=== PATIENT | female | born 1950 | race Caucasian/White ===

== ENCOUNTER 2020-03-14 15:25 | Outpatient (CLI) | payer MEDICARE, OTHER, SELFPAY ==
--- NOTE | 2020-03-14 15:30 | MM_ITS ---
WS: [id number] BILATERAL DIGITAL SCREENING MAMMOGRAPHY WITH CAD CLINICAL INFORMATION: SCREENING HISTORY: Screening mammogram. No current complaints. COMPARISON: December 27, 2018 TECHNIQUE: Bilateral CC and MLO views. FINDINGS: The breasts are composed of heterogeneous fibroglandular density tissue, which can limit the detectio n of small underlying mass lesions. No suspicious mass, asymmetry, calcifications, or architectural d istortion. No evidence of malignancy. Punctate calcifications. A few intramammary lymph nodes. MM/[place] [id number] IMPRESSION: BI-RADS: 2-Benign FOLLOW UP: 1 Year Follow-up Recommend return to annual screening mammography.
== END 2020-03-14 15:26 | disposition home or self-care (01) ==
LOC: RADSHAW 15:29
PROVIDERS: Visit Provider Obstetrics & Gynecology
DX: Z12.31 Encounter for screening mammogram for malignant neoplasm of breast (principal)
CPT/HCPCS: 77067

== ENCOUNTER 2022-11-07 13:58 | Outpatient (CLI) | payer MEDICARE, SELFPAY ==
--- NOTE | 2022-11-07 14:15 | MM_ITS ---
WS: [id number] BILATERAL 3D TOMOSYNTHESIS DIGITAL SCREENING MAMMOGRAPHY WITH CAD CLINICAL INFORMATION: SCREENING HISTORY: Screening mammogram. No current complaints. COMPARISON: 2020 TECHNIQUE: Bilateral CC and MLO views. FINDINGS: The breasts are composed of heterogeneous fibroglandular density tissue, which can limit the detectio n of small underlying mass lesions. No suspicious mass, asymmetry, calcifications, or architectural d istortion. No evidence of malignancy. Incidental punctate calcifications. MM/[place] [id number] IMPRESSION: BI-RADS: 2-Benign FOLLOW UP: 1 Year Follow-up Recommend return to annual screening mammography.
== END 2022-11-07 13:59 | disposition home or self-care (01) ==
PROVIDERS: PCP Family Medicine; Visit Provider Family Medicine
DX: Z12.31 Encounter for screening mammogram for malignant neoplasm of breast (principal)
CPT/HCPCS: 77063; 77067

== ENCOUNTER 2022-12-05 14:25 | Outpatient (CLI) | payer MEDICARE, SELFPAY ==
--- NOTE | 2022-12-05 14:27 | CTR_ITS ---
PROCEDURE INFORMATION: Exam: CT Chest With Contrast; Diagnostic Exam date and time: 12/05/2022 2:46 PM Age: 71 years old Clinical indication: Condition or disease; Other: Immune disorder; Other: Dermatopolymyosis; Additional info: Dermatopolymyosis, unspecified, organ involvment, unspecifi TECHNIQUE: Imaging protocol: Diagnostic computed tomography of the chest with contrast. Radiation optimization: All CT scans at this facility use at least one of these dose optimization techniques: automated exposure control; mA and/or kV adjustment per patient size (includes targeted exams where dose is matched to clinical indication); or iterative reconstruction. Contrast material: OMNI 350; Contrast volume: 100 ml; Contrast route: INTRAVENOUS (IV); REPORTING DATA: Count of CT and Cardiac NM exams in prior 12 months: This patient has received 0 known CTs and 0 known cardiac nuclear medicine studies in the 12 months prior to the current study. COMPARISON: CR XR chest 2V* [id number] 11/03/2022 3:24 PM RADIATION DOSE METRICS: Total DLP (mGy-cm): 00.01 FINDINGS: Lungs: Unremarkable. No consolidation. No masses. Pleural spaces: Unremarkable. No pneumothorax. No pleural effusion. Heart: Unremarkable. No cardiomegaly. No pericardial effusion. Lymph nodes: Unremarkable. No enlarged lymph nodes. Vasculature: Unremarkable. No aortic aneurysm. Bones/joints: Degenerative changes of the spine seen. Left proximal humerus ORIF hardware and old healed fracture deformity noted. Soft tissues: Unremarkable. PROCEDURE INFORMATION: Exam: CT Abdomen And Pelvis With Contrast Exam date and time: 12/05/2022 2:46 PM Age: 71 years old Clinical indication: Condition or disease; Other: Immune disorder; Other: Dermatopolymyosis; Additional info: Dermatopolymyosis, unspecified, organ involvment, unspecifi TECHNIQUE: Imaging protocol: Computed tomography of the abdomen and pelvis with contrast. Radiation optimization: All CT scans at this facility use at least one of these dose optimization techniques: automated exposure control; mA and/or kV adjustment per patient size (includes targeted exams where dose is matched to clinical indication); or iterative reconstruction. Contrast material: OMNI 350; Contrast volume: 100 ml; Contrast route: INTRAVENOUS (IV); REPORTING DATA: Count of CT and Cardiac NM exams in prior 12 months: This patient has received 0 known CTs and 0 known cardiac nuclear medicine studies in the 12 months prior to the current study. COMPARISON: US pelv w/transvag [id number] 11/11/2022 11:22 AM RADIATION DOSE METRICS: Total DLP (mGy-cm): 555.84 FINDINGS: Liver: There are multiple low-attenuation lesions scattered throughout the liver, the largest measuring 1.3 cm in the right hepatic lobe. No cirrhotic features identified. Gallbladder and bile ducts: Normal. No calcified stones. No ductal dilation. Pancreas: Normal. No ductal dilation. Spleen: There is a wedge-shaped area of decreased attenuation in the posterior spleen, consistent with infarct. 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 Adrenal glands: Normal. No mass. Kidneys and ureters: Normal. No hydronephrosis. Stomach and bowel: There is diverticulosis without evidence of diverticulitis. Appendix: No evidence of appendicitis. Intraperitoneal space: Unremarkable. No free air. No significant fluid collection. Vasculature: Unremarkable. No abdominal aortic aneurysm. Lymph nodes: Unremarkable. No enlarged lymph nodes. Urinary bladder: Unremarkable as visualized. Reproductive: Unremarkable as visualized. Bones/joints: Degenerative changes of the spine with grade 1 anterolisthesis of L3 and L4 seen. Soft tissues: Unremarkable. CT/CT chest abdpel w/*[id number] IMPRESSION: No acute pathology in the chest. IMPRESSION: Nonspecific hepatic hypodense lesions. Further characterization with contrast enhanced abdomen MRI should be considered in the adequate clinical setting.
[2022-12-05 14:48] LABS: Blood Urea Nitrogen 14 mg/dL (8-23)
[2022-12-05] MEDS: iohexol 350 mg/mL 500 mL Btl (per mL) IV (14:49)
== END 2022-12-05 14:26 | disposition home or self-care (01) ==
PROVIDERS: PCP Family Medicine; Visit Provider Internal Medicine Rheumatology
DX: M33.90 Dermatopolymyositis, unspecified, organ involvement unspecified (principal); Z12.9 Encounter for screening for malignant neoplasm, site unspecified; K76.9 Liver disease, unspecified
CPT/HCPCS: 71260; 74177; 82565; 84520; Q9967

== ENCOUNTER 2022-12-16 13:38 | Outpatient (CLI) | payer MEDICARE, OTHER, SELFPAY ==
[2022-12-16] MEDS: albuterol 2.5 mg/3 mL Neb INHALATION (14:05)
[2022-12-16 14:06] VITALS: PULSE 87; RESP 18; O2SAT 98
[2022-12-16 14:11] VITALS: PULSE 88
--- NOTE | 2022-12-16 14:29 | XR_ITS ---
WS: [id number] DEXA (DUAL ENERGY X-RAY ABSORPTIOMETRY) Bone mineral density was performed using a Avtal24 machine. HISTORY: RESIDENTIAL, CURRENT, USE OF SYSTEMIC STEROIDS COMPARISON: None available. Lumbar spine BMD (L1-L4): 1.244 g/cm2 T score: 0.5 Z score: 2.5 Total hip BMD: Left: 0.904 g/cm2. T score: -0.8 Z score: 0.9 Right: 0.964 g/cm2. T score: -0.3 Z score: 1.4 10 year probability of a major osteoporotic fracture is 36.3%. XR/XR DEXA axial skeleton* [id number] IMPRESSION: NORMAL BONE MINERAL DENSITY based upon the WHO classification for females.
== END 2022-12-16 13:39 | disposition home or self-care (01) ==
PROVIDERS: PCP Family Medicine; Visit Provider Internal Medicine Rheumatology
DX: M81.0 Age-related osteoporosis without current pathological fracture (principal); R06.02 Shortness of breath; M33.90 Dermatopolymyositis, unspecified, organ involvement unspecified; Z79.52 Long term (current) use of systemic steroids
CPT/HCPCS: 77080; 94060; 94726; 94729; J7613

== ENCOUNTER 2022-12-29 14:46 | Outpatient (CLI) | payer MEDICARE, OTHER, SELFPAY ==
--- NOTE | 2022-12-29 14:58 | MR_ITS ---
WS: [id number] MRI OF THE ABDOMEN WITHOUT AND WITH GADOLINIUM ENHANCEMENT INDICATION: Liver lesions COMPARISON: CT December 05, 2022 TECHNIQUE: Coronal single shot, axial single shot, axial T2 fat sat, and phase imaging, dynamic 3-D p ost gadolinium imaging, coronal 3-D T1 imaging with fat sat, axial 3-D 5 imaging with fat sat. FINDINGS: Comparison prior CT 6-23. Multiple small T2 hyperintense lesions correspond to low-attenuat ion lesion seen on the prior CT. No enhancement. Findings compatible with simple hepatic cysts. Mild diffuse fatty infiltration the liver. Normal portal vein and splenic vein. A few splenic granulo mas. Normal spleen. Wedge-shaped perfusion anomaly in the spleen unchanged since the prior CT likely due to prior splenic infarcts or splenic injury.Tiny pancreatic cyst or side branch IPMN measuring 6 in the distal body of the pancreas Adrenal glands are normal. Normal GE junction. Normal pancreas. Pancreatic head is normal in appearan ce. Normal common bile duct. No evidence of choledocholithiasis. Normal renal parenchymal enhancement . No hydronephrosis. Tiny RIGHT renal cyst. Normal caliber upper abdominal aorta. MR/MR abdomen wo/w con* [id number] IMPRESSION: 1. Multiple simple cysts in the liver correspond to the lesions from the prior CT. No suspicious hepatic lesions. 2. Tiny pancreatic cyst or side branch IPMN measuring 6 mm. Recommend 12 month follow-up with MRI of the pancreas without and with gadolinium enhancement 3. Mild diffuse fatty infiltration liver. 4. Wedge-shaped splenic perfusion defect likely due to prior splenic infarct o r laceration. This is a remote appearance. 5. No other suspicious findings.
[2022-12-29] MEDS: gadobenate dimeglumine 20 mL vial IV (16:14)
== END 2022-12-29 14:47 | disposition home or self-care (01) ==
LOC: RAD 14:47
PROVIDERS: PCP Family Medicine; Visit Provider Family Medicine
DX: K76.9 Liver disease, unspecified (principal); K86.2 Cyst of pancreas; K76.0 Fatty (change of) liver, not elsewhere classified; D73.9 Disease of spleen, unspecified
CPT/HCPCS: 74183; A9577

== ENCOUNTER 2023-01-21 13:13 | Outpatient (RCR) | payer MEDICARE, OTHER, SELFPAY | END 2023-02-02 23:59 | disposition home or self-care (01) | LOC: SPT 13:13 | PROVIDERS: Visit Provider Internal Medicine Rheumatology | DX: M33.90 Dermatopolymyositis, unspecified, organ involvement unspecified (principal) | CPT/HCPCS: 97110; 97163 ==

== ENCOUNTER 2023-02-03 06:00 | Outpatient (RCR) | payer MEDICARE, OTHER, SELFPAY | END 2023-02-13 23:59 | disposition home or self-care (01) | LOC: SPT 06:00 | PROVIDERS: Visit Provider Internal Medicine Rheumatology | DX: M33.12 Other dermatomyositis with myopathy (principal) | CPT/HCPCS: 97110; 97530 ==

== ENCOUNTER → 2023-02-12 10:57 | Outpatient (BNVA) | payer MEDICARE, OTHER, SELFPAY | PROVIDERS: PCP Family Medicine; Visit Provider Internal Medicine | DX: R00.2 Palpitations (principal) | CPT/HCPCS: 93225 ==

== ENCOUNTER 2023-03-02 09:44 | Emergency (ER) | payer MEDICARE, OTHER, SELFPAY ==
[2023-03-02 09:46] VITALS: BP 130/73; PULSE 86; RESP 14; TEMP 36.3; O2SAT 95; BMI 21.3
--- NOTE | 2023-03-02 10:53 | ED_ITS ---
HPI - Extremity Problem General: Chief complaint: Extremity Injury, Lower Stated complaint: left leg swollen Time Seen by Provider: 03/02/23 10:08 Source: patient and family Mode of arrival: ambulatory Limitations: no limitations History of Present Illness: Patient is a very nice 72-year-old female with a history of dermatomyositis currently under the care of of Dr. Pineda/rheumatology here for complaints of pain and swelling to her left lower extremity. Patient states she began noticing some discomfort in the left lower leg 4 to 5 days ago that she attributed to lower extremity exercises she had been doing with home health/physical therapy. She states yesterday and into today she began noticing swelling that made her concerned for a possible DVT thus prompting her emergency department visit. She denies shortness of breath or difficulty breathing. Denies previous DVT/PE. Denies recent surgery or periods of prolonged inactivity. Patient was taking oral estradiol by her INOCULATOR but states she did stop this medication last month. MD Complaint: extremity pain and extremity swelling Onset (ago): day(s) Pain Consistency: constant Location: left and lower extremity Radiation: none Relieving factors: nothing Exacerbating factors: nothing Associated symptoms: Reports no associated symptoms; Deny chest pain, fever(s) or rash Review of Systems Const: Denies: fever(s), chills, body aches, fatigue or malaise Card: Denies: chest pain Resp: Denies: dyspnea GI: Denies: abdominal pain, nausea or vomiting Musc: Reports: extremity pain and extremity swelling; Denies: neck pain, back pain, joint pain or joint swelling Skin/Breast: Denies: rash Neuro: Denies: headache(s), numbness in extremities, weakness in extremities or sensory changes PFSH ED PFSH: Medical History Dermatomyositis Detached retina 2020 Surgical History H/O eye surgery Family History Daughter Bleeding disorder, Onset Age: 13 auto immune platelet disorder Daughter No problems noted. Mother Stroke Hypertension Brother Hypertension Denies family history of Colon cancer Ovarian cancer Diabetes Clotting disorder Hyperlipidemia Uterine cancer Social History Smoking and tobacco status: never smoked Physical Exam Const: COMMON NORMALS: no acute distress, average body habitus, patient oriented x3, no limitations, healthy appearing, alert and well nourished Resp: COMMON NORMALS: normal respiratory effort and clear to auscultation bilaterally AUSCULTATION: clear to auscultation bilaterally Cardio: COMMON NORMALS: regular rate and regular rhythm RATE: regular rate RHYTHM: regular rhythm Back/Pelvis: COMMON NORMALS: thoracic and lumbar spine normal to inspection, no thoracic nor lumbar tenderness and thoraco-lumbar ROM normal Extremity: COMMON NORMALS: full ROM, capillary refill normal and no joint enlargement GENERAL: Yes normal exam except as noted and Yes calf tenderness RIGHT LOWER EXTREMITY: Yes lower leg, Yes foot & digits and Yes foot & digits OTHER: pt has pain and swelling affecting just below the knee distally into lower leg/ankle/foot; positive calf pain/Govind's; no redness/warmth present; NV intact Neuro: COMMON NORMALS: patient oriented x3, moves all extremities, no focal motor deficits and no sensory deficits noted SENSORIUM/ORIENTATION: Yes alert Skin: COMMON NORMALS: no rashes or lesions noted GENERAL SKIN EXAM: no rashes or lesions noted TRAUMA: no lacerations or abrasions Course Vital Signs: Vital signs: Vital Signs Temperature 97.4 F L 03/02/23 09:46 Pulse Rate 86 03/02/23 09:46 Respiratory Rate 16 03/02/23 13:10 Blood Pressure 128/82 03/02/23 13:10 Pulse Oximetry 96 03/02/23 13:10 Oxygen Delivery Me thod Room Air 03/02/23 13:10 MDM - Extremity (Nontraumatic) Medical Decision Making Patient here with pain to L LE x 4-5 days and swelling today. US of her lower extremity revealed DVT. Findings below: FINDINGS: Acute, nearly occlusive? DVT from the SFV, Lt Popliteal vein to the Lt PTV. CONCLUSIONS Acute left lower extremity deep venous thrombosis. She has no complaints of chest pain, SOB, difficulty breathing. Will place her on Eliquis and have her follow up with Dr. Bello. Strict return to ED precautions given. Discharge Plan Discharge Patient Disposition: Home Clinical Impression: Acute deep vein thrombosis (DVT) of left lower extremity Qualifiers: Affected thrombotic vein of extremity: popliteal Qualified Code(s): I82.432 - Acute embolism and thrombosis of left popliteal vein Condition: Stable Prescriptions: New Eliquis 5 mg tablet 5 mg PO BID Qty: 74 0RF Rx Instructions: Take two tabs (10mg) PO BID x 7 days then one tab (5mg) PO BID thereafter No Action methotrexate sodium 2.5 mg tablet 2.5 mg PO DAILY Rx Instructions: 4 TABS QAM AND 4 TABS QPM ON THURSDAY hydroxychloroquine [Plaquenil] 200 mg tablet 200 mg PO DAILY prednisone 10 mg tablet 5 mg PO DAILY prednisone 20 mg Tablet 20 mg PO DAILY alendronate 70 mg tablet 70 mg PO Q7D Rx Instructions: ON THURSDAY Calcium 600 600 mg calcium (1,500 mg) Tablet 600 mg PO BID folic acid 1 mg tablet 2 mg PO DAILY dorzolamide-timolol 22.3-6.8 mg/mL drops 1 drp ophthalmic (eye) BID Rx Instructions: BOTH EYES Women's Daily Formula 18 mg iron-400 mcg-500 mg Tablet 1 tab PO DAILY Discharge Orders: Discharge ED (Routine); Ordered 03/02/23 Ordered By: Michelle Hanson Referrals: Erwin Bello MD [Primary Care Provider] - Patient Instructions: Apixaban (By mouth) (Eliquis), Deep Vein Thrombosis (DC) Coding Level of Care Code ED Press Clippings Cutter And Paster for Nafisa Vazquez
--- NOTE | 2023-03-02 11:20 | USCV_ITS ---
Etta Soliz Age: 72 Gender: F : 1950 Exam Date: 03/02/2023 12:47 Ordering Phys: Michelle Hanson Technologist: BRE Exam Location: [facility] – [place] Indication: Lt Leg Pain/Swellng HISTORY: Lower extremity swelling. Lower extremity pain. PROCEDURES: Venous duplex imaging was performed in only the left lower extremity. The following venous structures were evaluated: common femoral vein, profunda vein, proximal portion of the greater saphenous vein, superficial femoral vein, and the popliteal vein. In addition, the posterior tibial and peroneal trunk were evaluated. Serial compression, augmentation maneuvers, and spectral Doppler flow evaluation were performed. FINDINGS: Acute, nearly occlusive DVT from the SFV, Lt Popliteal vein to the Lt PTV. CONCLUSIONS Acute left lower extremity deep venous thrombosis. Dr. Leticia Jensen DO (Electronically Signed) Final Date: 02 March 2023 13:43 S
[2023-03-02 12:11] VITALS: BP 128/82; RESP 16; O2SAT 98
[2023-03-02 13:10] VITALS: BP 128/82; RESP 16; O2SAT 96
== END 2023-03-02 13:38 | disposition home or self-care (01) ==
PROVIDERS: Emergency Provider Physician Assistant; PCP Family Medicine
DX: I82.432 Acute embolism and thrombosis of left popliteal vein (principal)
CPT/HCPCS: 93971; 99284

== ENCOUNTER → 2023-03-10 13:00 | Outpatient (BNVA) | payer MEDICARE, OTHER, SELFPAY | PROVIDERS: PCP Family Medicine; Visit Provider Nurse Practitioner Women's Health | DX: N93.0 Postcoital and contact bleeding (principal); Z12.4 Encounter for screening for malignant neoplasm of cervix; N76.0 Acute vaginitis; N95.2 Postmenopausal atrophic vaginitis | CPT/HCPCS: 87624 ==

== ENCOUNTER → 2023-03-25 16:45 | Outpatient (BNVA) | payer MEDICARE, OTHER, SELFPAY | PROVIDERS: PCP Family Medicine; Visit Provider Internal Medicine Cardiovascular Disease | DX: R06.02 Shortness of breath (principal); I31.9 Disease of pericardium, unspecified; R00.2 Palpitations; M33.90 Dermatopolymyositis, unspecified, organ involvement unspecified | CPT/HCPCS: 36415; 83880; 84484; 99204 ==

== ENCOUNTER 2023-03-26 10:00 | Oncology outpatient (recurring) (ONCR) | payer MEDICARE, OTHER, SELFPAY ==
[2023-03-12] VITALS (9 sets, daily range): BP systolic 85–178; BP diastolic 57–69; PULSE 67–91; RESP 16; TEMP 36.1–37.1; O2SAT 95–96
[2023-03-12] MEDS: diphenhydrAMINE 50 mg/mL SDV 1mL 25 MG IVP (10:36)
[2023-03-12] MEDS: acetaminophen 325 mg Tablet 975 MG PO (10:36)
[2023-03-12] MEDS: sodium chloride 0.9% 250 ML 75 ML IV (10:36)
[2023-03-12] MEDS: rituximab 1,000 MG in sodium chloride 0.9% 500 ML 30 MG IV (11:00)
[2023-03-26 11:02] VITALS: BMI 21.3
[2023-03-26 11:34] LABS: Basophils # 0.1 10^3/uL (0.0-0.1); Basophils % 0.9 %; Eosinophils # 0.1 10^3/uL (0.0-0.8); Eosinophils % 0.7 %; Lymphocytes # 0.9 10^3/uL (0.8-4.8); Lymphocytes % 8.4 %; Mean Corpuscular HGB Conc 31.5 g/dL (30-55); Mean Corpuscular Volume 104.6 fl (85-98); Mean Platelet Volume 11.2 fL (7.4-10.4); Monocytes # 0.7 10^3/uL (0.2-0.9); Monocytes % 6.4 %; Neutrophils # 8.56 10^3/uL (1.8-7.7); Nucleated Red Blood Cells % 0 %; Platelet Count 232 10^3/cmm (157-399); Red Blood Count 3.73 10^6/uL (3.85-5.65); Red Cell Distribution Width 15.4 % (12.1-15.1); White Blood Count 10.31 10^3/uL (3.29-11.43)
[2023-03-26] MEDS: acetaminophen 325 mg Tablet 975 MG PO (12:04)
[2023-03-26] MEDS: diphenhydrAMINE 50 mg/mL SDV 1mL 25 MG IVP (12:04)
[2023-03-26] MEDS: sodium chloride 0.9% 250 ML 75 ML IV (12:05)
[2023-03-26] MEDS: rituximab 1,000 MG in sodium chloride 0.9% 500 ML 70 MG IV (12:31)
[2023-03-26 12:35] VITALS: BP 110/72; PULSE 84; RESP 16; TEMP 36.3; O2SAT 97
[2023-03-26 13:40] VITALS: BP 85/57; PULSE 91; RESP 16; TEMP 36.1; O2SAT 94
[2023-03-26 14:10] VITALS: BP 96/43; PULSE 79; RESP 16; TEMP 36.3; O2SAT 93
[2023-03-26 16:00] VITALS: BP 101/67; PULSE 79; RESP 16; TEMP 36.3; O2SAT 98
== END 2023-04-04 23:59 | disposition home or self-care (01) ==
PROVIDERS: PCP Family Medicine; Visit Provider Internal Medicine Rheumatology
DX: M33.13 Other dermatomyositis without myopathy (principal)
CPT/HCPCS: 85025; 96374; 96375; 96413; 96415; J1200; J7040; J7050; J9312

== ENCOUNTER → 2023-03-31 10:30 | Outpatient (BNVA) | payer MEDICARE, SELFPAY | PROVIDERS: PCP Family Medicine; Visit Provider Nurse Practitioner Women's Health | DX: R30.0 Dysuria (principal); N81.2 Incomplete uterovaginal prolapse | CPT/HCPCS: 87077; 87086; 87184 ==

== ENCOUNTER 2023-04-23 12:54 | Outpatient (CLI) | payer MEDICARE, SELFPAY ==
--- NOTE | 2023-04-23 13:00 | USCV_ITS ---
Etta Soliz Age: 72 Gender: F : 1950 Exam Date: 04/23/2023 13:16 Ordering Phys: Shena Urbano MD ([email or web address]) Technologist: LANDEN Exam Location: [facility] [place] Indication: ARRHYTHMIA BP: 0 / 79 HR: 84 Rhythm: Sinus Technical Quality: Adequate MEASUREMENTS (Male / Female) Normal Values 2D ECHO LVOT Diameter 2.0 cm LV Ejection Fraction MOD 2C 58.5 % LV Ejection Fraction 2C AL 57.2 % LA Diameter 2.6 cm LA Width 3.1 cm LA Height 3.3 cm RA Width 3.4 cm RA Height 4.2 cm Aorta at Sinotubular Diameter 1.9 cm IVC Diameter 1.7 cm M-MODE Aortic Annulus Diameter 1.8 cm LA Ao Ratio MM 1.3 MV E Point Septal Separation 0.4 cm DOPPLER AV Peak Velocity 144.7 cm/s LVOT Peak Velocity 84.0 cm/s AV Area Cont Eq vti 2.0 cm squared AV Area Cont Eq pk 1.9 cm squared MV Peak Velocity 124.0 cm/s MV Area PHT 5.0 cm squared Mitral E to A Ratio 1.1 MV E' Velocity 53.5 cm/s Mitral E to MV E' Ratio 9.3 Mitral E to LV E' Lateral Ratio 9.0 Mitral E to LV E' Septal Ratio 9.6 TR Peak Velocity 245.7 cm/s TR Peak Gradient 24.1 mmHg TR Mean Velocity 200.4 cm/s TR Mean Gradient 16.6 mmHg TR Velocity Time Integral 78.5 cm TV Peak E Velocity 41.0 cm/s Right Atrial Pressure 3.0 mmHg Pulmonary Artery Systolic Pressu 27.1 mmHg PV Peak Velocity 93.0 cm/s RV Acceleration Time 0.2 s RV Ejection Time 0.4 s RV AcT/ET 0.5 FINDINGS Left Ventricle Normal left ventricular size and systolic function, EF 59 %. No regional wall motion abnormalities. Right Ventricle The right ventricle is normal in size and function. Right Atrium The right atrium is normal in size. Left Atrium The left atrium is normal in size. Mitral Valve Moderate mitral valve regurgitation. Aortic Valve Mild aortic valve regurgitation. Tricuspid Valve Mild tricuspid valve regurgitation. Pulmonic Valve Trace pulmonary valve regurgitation. Pericardium Normal pericardium without effusion. Aorta Normal aortic annulus size. IVC Normal inferior vena cava. CONCLUSIONS Normal left ventricular size and systolic function, EF 59 %. No regional wall motion abnormalities. Moderate mitral valve regurgitation. Mild aortic valve regurgitation. Trace pulmonary valve regurgitation. Mild tricuspid valve regurgitation. Estimated pulmonary artery peak systolic pressure 27 mmHg There is no pericardial effusion. There are no intracardiac masses. No similar previous studies are available for comparison. Dr Shena Urbano MD [facility] (Electronically Signed) Final Date: 24 April 2023 12:35 S
== END 2023-04-23 12:55 | disposition home or self-care (01) ==
LOC: RAD 12:55
PROVIDERS: PCP Family Medicine; Visit Provider Internal Medicine Cardiovascular Disease
DX: I08.3 Combined rheumatic disorders of mitral, aortic and tricuspid valves (principal); R06.09 Other forms of dyspnea
CPT/HCPCS: 93306

== ENCOUNTER 2023-10-01 08:59 | Oncology outpatient (recurring) (ONCR) | payer MEDICARE, OTHER, SELFPAY ==
[2023-10-01 09:56] LABS: Hematocrit 41.2 % (36-47); Mean Corpuscular Hemoglobin 33.1 pg (27-33); Mean Corpuscular Volume 100.2 fl (85-98); Mean Platelet Volume 10.9 fL (7.4-10.4); Platelet Count 216 10^3/cmm (157-399); Red Blood Count 4.11 10^6/uL (3.85-5.65); Red Cell Distribution Width 13.5 % (12.1-15.1); White Blood Count 5.33 10^3/uL (3.29-11.43)
[2023-10-01] MEDS: sodium chloride 0.9% 250 ML 75 ML IV (10:07)
[2023-10-01] MEDS: diphenhydrAMINE 50 mg/mL SDV 1mL 25 MG IVP (10:14)
[2023-10-01] MEDS: acetaminophen 325 mg Tablet 975 MG PO (10:14)
[2023-10-01 10:37] VITALS: BP 117/81; PULSE 73; RESP 16; TEMP 36.6; O2SAT 98
[2023-10-01] MEDS: rituximab 1,000 MG in sodium chloride 0.9% 500 ML 100 MG IV (10:37)
[2023-10-01 11:15] VITALS: BP 100/68; PULSE 83; RESP 16; TEMP 36.8; O2SAT 98
[2023-10-01 11:50] VITALS: BP 91/58; PULSE 86; RESP 16; TEMP 36; O2SAT 99
[2023-10-01 12:20] VITALS: BP 90/62; PULSE 82; RESP 16; TEMP 36.6; O2SAT 96
[2023-10-01 12:53] LABS: Total Cells Counted 100 (0-100)
[2023-10-01 12:59] LABS: Absolute Eosinophils 0.2 10^3/cmm (0.0-0.7); Absolute Segmented Neutrophil 2.8 10/cmm (1.6-7.1); Basophils Absolute 0.1 10^3/cmm (0.0-0.2); Eosinophils 4 %; Lymphocytes 30 %; Lymphocytes Absolute 1.7 10^3/cmm (1.2-3.4); Monocytes Absolute 0.6 10^3/cmm (0.1-0.6); Segmented Neutrophils 53 %
[2023-10-01 13:00] LABS: Absolute Neutrophil 2.8 10^3/cmm (1.4-6.5); Anisocytosis Trace; Giant Platelets 1+; Platelet Estimate Normal (Normal)
[2023-10-01 14:30] VITALS: BP 93/60; PULSE 88; RESP 16; TEMP 36.8; O2SAT 96
== END 2023-10-04 23:59 | disposition home or self-care (01) ==
PROVIDERS: PCP Family Medicine; Visit Provider Internal Medicine Rheumatology
DX: M33.90 Dermatopolymyositis, unspecified, organ involvement unspecified
CPT/HCPCS: 85007; 85027; 96375; 96413; 96415; J1200; J7040; J7050; J9312

== ENCOUNTER 2023-10-15 08:52 | Oncology outpatient (recurring) (ONCR) | payer MEDICARE, OTHER, SELFPAY ==
[2023-10-15 09:11] VITALS: BP 118/76; PULSE 78; RESP 18; TEMP 36.6; O2SAT 90
[2023-10-15] MEDS: diphenhydrAMINE 50 mg/mL SDV 1mL 25 MG IVP (09:23)
[2023-10-15] MEDS: acetaminophen 325 mg Tablet 975 MG PO (09:23)
[2023-10-15] MEDS: sodium chloride 0.9% 250 ML 75 ML IV (09:23)
[2023-10-15] MEDS: rituximab 1,000 MG in sodium chloride 0.9% 500 ML 60 MG IV (09:57)
[2023-10-15 09:58] VITALS: BP 130/84; PULSE 78; RESP 18; TEMP 37.2; O2SAT 95
[2023-10-15 10:30] VITALS: BP 107/74; PULSE 75; RESP 18; TEMP 37.1; O2SAT 92
[2023-10-15 11:00] VITALS: BP 85/48; PULSE 79; RESP 18; TEMP 36.1; O2SAT 97
[2023-10-15 11:33] VITALS: BP 121/74; PULSE 69; RESP 16; TEMP 36.5; O2SAT 99
[2023-10-15 14:11] VITALS: BP 101/65; PULSE 77; RESP 16; TEMP 37.3; O2SAT 94
== END 2023-11-03 23:59 | disposition home or self-care (01) ==
LOC: ONCMED 08:53
PROVIDERS: PCP Family Medicine; Visit Provider Internal Medicine Rheumatology
DX: M33.13 Other dermatomyositis without myopathy (principal)
CPT/HCPCS: 96375; 96413; 96415; J1200; J7040; J7050; J9312

== ENCOUNTER 2023-11-10 14:07 | Outpatient (CLI) | payer MEDICARE, OTHER, SELFPAY ==
--- NOTE | 2023-11-10 14:12 | MM_ITS ---
WS: [id number] BILATERAL SCREENING DIGITAL TOMOSYNTHESIS MAMMOGRAM WITH CAD HISTORY: SCREENING COMPARISON: 11/07/2022, 03/14/2020 and 11/27/2017 Bilateral CC and MLO views with tomosynthesis and synthetic mammography submitted. Computer aided det ection analyzed. Breast composition: The breasts are heterogeneously dense, which may obscure small masses. No suspici ous masses, microcalcifications or architectural distortion. Bilateral scattered asymmetries and a fe w calcifications are stable since at least 2017. MM/[place] [id number] IMPRESSION: BI-RADS: 2-Benign FOLLOW UP: 1 Year Follow-up
== END 2023-11-10 14:08 | disposition home or self-care (01) ==
LOC: RAD 14:08
PROVIDERS: PCP Family Medicine; Visit Provider Family Medicine
DX: Z12.31 Encounter for screening mammogram for malignant neoplasm of breast (principal)
CPT/HCPCS: 77063; 77067

== ENCOUNTER → 2024-01-13 09:16 | Outpatient (CLI) | payer MEDICARE, SELFPAY ==
--- NOTE | 2024-01-13 09:25 | US_ITS ---
WS: [id number] Pelvic ultrasound, 01/13/2024 Clinical Data: PELVIC PAIN Comparison: None. Findings: The uterus measures 7.1 cm x 4.2 cm x 3.4 cm. The uterus shows heterogeneous echogenicity. The endometrium is 0.3 cm. No intrauterine or abnormal intrauterine mass is seen. The ovaries were not imaged. The cervix is long and closed. There is no free fluid in the cul-de-sac. US/US transvaginal [id number] Impression: Heterogeneous echogenicity of the uterus.
--- NOTE | 2024-01-13 09:25 | MR_ITS ---
WS: [email or web address] MRI/MRCP OF THE ABDOMEN WITHOUT GADOLINIUM ENHANCEMENT TECHNIQUE: Coronal T2 Fase BH, Axial T2 Fase BH, Axial T2 FS BH, Zxial 3D Muhammad BH, Axial DWI BH, 2D MRCP Radial BH, 3D MRCP (Resp), and Axial 3D Dyn BH Post sequences. CLINICAL INFORMATION: MASS OF PANCREAS COMPARISON: MRI 12/29/2022 FINDINGS: Previously described small hepatic cysts are unchanged compared to previous. Mild hepatomegaly. Ximena l portal vein and splenic vein. No hydronephrosis in either kidney. Adrenal glands appear normal. Nor mal caliber upper abdominal aorta. Splenic enhancement has a more normal appearance today. Contracted gallbladder with phrygian cap similar to previous. Tiny pancreatic cyst or side branch IPMN measuring 6 mm is unchanged in appearance in the pancreatic body/tail. No significant pancreatic ductal dilatation. Pancreatic head is normal in appearance. Norm al common bile duct. Normal GE junction. Tiny RIGHT renal cyst. MR/MR abdomen wo/w con* [id number] Impression: 1. Stable small cysts in the liver. 2. Tiny pancreatic cyst or sidebranch IPMN measuring 6 mm is unchanged. 3. No hydronephrosis in either kidney. 4. No other acute findings.
[2024-01-13] MEDS: gadobenate dimeglumine 20 mL vial IV (10:13)
== END | disposition home or self-care (01) ==
LOC: RAD 09:21
PROVIDERS: PCP Family Medicine; Visit Provider Family Medicine
DX: K86.89 Other specified diseases of pancreas (principal); Q44.6 Cystic disease of liver; R16.0 Hepatomegaly, not elsewhere classified; K82.0 Obstruction of gallbladder; K86.2 Cyst of pancreas; N85.8 Other specified noninflammatory disorders of uterus
CPT/HCPCS: 74183; 76830; A9577

== ENCOUNTER → 2024-03-15 16:10 | Outpatient (BNVA) | payer MEDICARE, OTHER, SELFPAY | PROVIDERS: PCP Family Medicine; Visit Provider Nurse Practitioner Women's Health | DX: Z12.4 Encounter for screening for malignant neoplasm of cervix (principal) | CPT/HCPCS: 87624 ==

== ENCOUNTER 2024-05-06 08:02 | Oncology outpatient (recurring) (ONCR) | payer MEDICARE, OTHER, SELFPAY ==
[2024-05-06] MEDS: acetaminophen 325 mg Tablet 975 MG PO (08:40)
[2024-05-06] MEDS: sodium chloride 0.9% 250 ML 75 ML IV (08:42)
[2024-05-06] MEDS: diphenhydrAMINE 50 mg/mL SDV 1mL 25 MG IVP (08:46)
[2024-05-06] MEDS: rituximab 1,000 MG in sodium chloride 0.9% 500 ML 80 MG IV (09:20)
[2024-05-06 09:23] VITALS: BP 132/70; PULSE 81; RESP 16; TEMP 36.9; O2SAT 100
[2024-05-06 09:50] VITALS: BP 132/70; PULSE 81; RESP 16; TEMP 36.8; O2SAT 100
[2024-05-06 10:20] VITALS: BP 107/70; BP 113/69; PULSE 69; PULSE 93; RESP 16; TEMP 36.5; O2SAT 97
[2024-05-06 10:50] VITALS: BP 116/75; PULSE 73; RESP 16; TEMP 36.9; O2SAT 98
[2024-05-06 12:13] VITALS: BP 125/70; PULSE 68; RESP 16; TEMP 36.9; O2SAT 98
== END 2024-06-04 23:59 | disposition home or self-care (01) ==
LOC: ONCMED 08:03
PROVIDERS: PCP Family Medicine; Visit Provider Internal Medicine Rheumatology
DX: M33.13 Other dermatomyositis without myopathy; Z79.899 Other long term (current) drug therapy
CPT/HCPCS: 96375; 96413; 96415; J1200; J7040; J7050; J9312

== ENCOUNTER 2024-05-09 11:10 | Outpatient (CLI) | payer MEDICARE, OTHER, SELFPAY ==
--- NOTE | 2024-05-09 11:15 | USR_ITS ---
PROCEDURE INFORMATION: Exam: US Pelvis, Transvaginal, Non-Obstetric Exam date and time: 05/09/2024 11:21 AM Age: 73 years old Clinical indication: Pelvic pain; Additional info: M33.90 - dermatopolymyositis, unspecified, organ involvem. . . , 1cm fibroid in 2022 TECHNIQUE: Imaging protocol: Real-time transvaginal pelvic (non-obstetric) ultrasound with image documentation. Transvaginal imaging was used for better evaluation of the endometrium, adnexa, and/or cervix. COMPARISON: US transvaginal [id number] 01/13/2024 9:48 AM FINDINGS: Uterus: Uterus measures 7.7 x 3.5 x 4.5 cm. There is no fibroid noted on the current study, the previously measured area may be due to artifact from calcifications within the uterus. Endometrial stripe measures 0.2 cm. Right ovary/adnexa: Right ovary is not visualized. No adnexal masses noted. Left ovary/adnexa: Left ovary is not visualized. No adnexal masses noted. Urinary bladder: Urinary bladder is limited. Intraperitoneal space: No free fluid. US/US transvaginal [id number] IMPRESSION: No acute findings.
== END 2024-05-09 11:11 | disposition home or self-care (01) ==
LOC: RAD 11:11
PROVIDERS: PCP Family Medicine; Visit Provider Nurse Practitioner Women's Health
DX: M33.90 Dermatopolymyositis, unspecified, organ involvement unspecified (principal); D25.9 Leiomyoma of uterus, unspecified
CPT/HCPCS: 76830

== ENCOUNTER 2024-06-22 13:25 | Outpatient (CLI) | payer MEDICARE, OTHER, SELFPAY ==
--- NOTE | 2024-06-22 13:34 | XR_ITS ---
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 This corresponds to a T score score of -0.6 and Z score of 1.0. Left femoral neck bone mineral density measures 0.835 g/cm2. This corresponds to a T score of -1.4 an d Z score of 0.2. Right femoral neck bone mineral density measures 0.903 g/cm2. This corresponds to a T score -0.8of an d Z score of 0.7. Mean femoral neck bone mineral density measures 0.869 g/cm2. This corresponds to a T score of -1.1 an d Z score of 0.4. XR/XR DEXA axial skeleton* [id number] IMPRESSION: Normal bone mineralization lumbar spine. Osteopenia femoral necks. Patient's FRAX calculated 10 year probability for major osteoporotic fracture i s 43.7% and osteoporotic hip fracture is 23.1%. Bone marrow density lumbar spine decreased -10.7% Bone mineral density femoral necks decreased -7.0%
== END 2024-06-22 13:26 | disposition home or self-care (01) ==
PROVIDERS: PCP Family Medicine; Visit Provider Family Medicine
DX: Z79.52 Long term (current) use of systemic steroids (principal); M85.852 Other specified disorders of bone density and structure, left thigh; M85.851 Other specified disorders of bone density and structure, right thigh
CPT/HCPCS: 77080

== ENCOUNTER 2024-06-28 09:16 | Outpatient (RCR) | payer MEDICARE, OTHER, SELFPAY | END 2024-07-05 23:59 | disposition home or self-care (01) | LOC: SPT 09:16 | PROVIDERS: PCP Family Medicine; Visit Provider Family Medicine | DX: M54.50 Low back pain, unspecified (principal) | CPT/HCPCS: 97110; 97161 ==

== ENCOUNTER 2024-08-09 10:56 | Outpatient (CLI) | payer MEDICARE, OTHER, SELFPAY ==
--- NOTE | 2024-08-09 11:00 | MR_ITS ---
WS: [email or web address] MRI/MRCP OF THE ABDOMEN WITHOUT GADOLINIUM ENHANCEMENT TECHNIQUE: Coronal T2 Fase BH, Axial T2 Fase BH, Axial T2 FS BH, Zxial 3D Muhammad BH, Axial DWI BH, 2D MRCP Radial BH, 3D MRCP (Resp), and Axial 3D Dyn BH Post sequences. CLINICAL INFORMATION: PANCREATIC CYST COMPARISON: 01/13/2024 and 12/29/2022 FINDINGS: Tiny pancreatic cystic lesion likely side branch IPMN measuring 6 mm is unchanged in appearance in the pancreatic body/tail compared to the previous exams. No significant pancreatic ductal dilatation. Suspected connection to the pancreatic duct. Pancreatic head is normal in appearance. Normal common bile duct. Small hepatic cysts are unchanged compared to previous. Mild hepatomegaly with diffuse fatty infiltration. Normal portal vein and splenic vein. No hydronephrosis in either kidney. Adrenal glands are normal. Normal caliber upper abdominal aorta. Normal gallbladder with phrygian cap similar to previous. Normal GE junction. No hydronephrosis in either kidney MR/MR abdomen wo/w con* [id number] Impression: 1. No significant changes compared to previous. 2. Stable small cyst in the liver. 3. Stable small cystic lesion likely sidebranch IPMN as previously described m easuring 6 mm. No abnormal gadolinium enhancement. 4. No other acute findings.
[2024-08-09] MEDS: gadobenate dimeglumine 20 mL vial 13 ML IV (11:59)
== END 2024-08-09 10:57 | disposition home or self-care (01) ==
LOC: RAD 10:59
PROVIDERS: PCP Family Medicine; Visit Provider Internal Medicine
DX: K86.2 Cyst of pancreas (principal); K76.89 Other specified diseases of liver; K76.0 Fatty (change of) liver, not elsewhere classified; R93.3 Abnormal findings on diagnostic imaging of other parts of digestive tract
CPT/HCPCS: 74183

== ENCOUNTER 2024-12-01 14:48 | Outpatient (CLI) | payer MEDICARE, OTHER, SELFPAY ==
--- NOTE | 2024-12-01 14:51 | MM_ITS ---
WS: [id number] BILATERAL 3D TOMOSYNTHESIS DIGITAL SCREENING MAMMOGRAPHY WITH CAD CLINICAL INFORMATION: SCREENING HISTORY: Screening mammogram. No current complaints. COMPARISON: 2023 TECHNIQUE: Bilateral CC and MLO views. FINDINGS: The breasts are composed of heterogeneous fibroglandular density tissue, which can limit the detection of small underlying mass lesions. No suspicious mass, asymmetry, calcifications, or architectural distortion. No evidence of malignancy. Incidental punctate and lucent centered calcifications. MM/MM [facility] tomosynthesis [id number] IMPRESSION: DENSITY: The breasts are heterogeneously dense, which may obscure small masses. BI-RADS: 2 - Benign FOLLOW UP: 1 Year Follow-up Recommend return to annual screening mammography.
== END 2024-12-01 14:49 | disposition home or self-care (01) ==
PROVIDERS: PCP Family Medicine; Visit Provider Family Medicine
DX: Z12.31 Encounter for screening mammogram for malignant neoplasm of breast (principal); R92.333 Mammographic heterogeneous density, bilateral breasts
CPT/HCPCS: 77063; 77067